=== PATIENT | female | born 1975 | race African-American/Black ===

== ENCOUNTER 2016-07-31 10:05 | Emergency (ER) | payer OTHER ==
[~2016-07-31] VITALS: Ht 160 cm; Wt 74.8 kg
--- NOTE | 2016-07-31 10:37 | ED GENERAL ADULT ---
History of Present Illness General Chief Complaint: General Adult Stated Complaint: HERE FOR 2ND RABIES SHOT Source: patient Exam Limitations: no limitations Vital Signs & Intake/Output Vital Signs & Intake/Output Vital Signs Date Time Temp Pulse Resp B/P B/P Pulse O2 O2 Flow FiO2 Mean Ox Delivery Rate 07/31 1051 98.2 77 18 147/94 97 Room Air Room Air Allergies Coded Allergies: No Known Allergies (07/31/16) Triage Nurses Notes Reviewed? yes Onset: Abrupt Duration: day(s): Timing: recent history Injury Environment: home No Modifying Factors: none HPI: 41-year-old female comes into emergency room for further evaluation of second rabies vaccine. Patient was seen at [facility] for the first 1. Patient had a positive exposure in the house. Denies any bites. Denies any pain. Denies any other associated symptoms. Past History Travel History Traveled to [place] past 21 day No Medical History Any Pertinent Medical History? see below for history Surgical History Surgical History: non-contributory Family History Hx Contributory? No Review of Systems Review of Systems Constitutional: Reports: no symptoms. EENTM: Reports: no symptoms. Respiratory: Reports: no symptoms. Cardiovascular: Reports: no symptoms. GI: Reports: no symptoms. Genitourinary: Reports: no symptoms. Musculoskeletal: Reports: no symptoms. Skin: Reports: no symptoms. Neurological/Psychological: Reports: no symptoms. Hematologic/Endocrine: Reports: no symptoms. Immunologic/Allergic: Reports: no symptoms. All Other Systems: Reviewed and Negative Physical Exam Physical Exam General Appearance: well developed/nourished, alert, awake Head: atraumatic Eyes: Bilateral: normal appearance. Ears, Nose, Throat: hearing grossly normal Neck: normal inspection Respiratory: no respiratory distress Back: normal range of motion Extremities: normal range of motion Neurologic/Psych: awake, alert Skin: intact, normal color Core Measures ACS in differential dx? No CVA/TIA Diagnosis: No Severe Sepsis Present: No Septic Shock Present: No Progress Differential Diagnoses I considered the following diagnoses in my evaluation of the patient: Rabies, cellulitis, abscess, tetanus Plan of Care: Current Medications Sig/[facility] Start time Last Medication Dose Stop Time Status Admin Rabies Vaccine 1 SYR ONCE ONE 07/31 1030 UNVr (Rabies (Vaccine) 07/31 1031 Inj (1ML)) Initial ED EKG: none Departure Departure Disposition: HOME OR SELF CARE Condition: Stable Clinical Impression Primary Impression: Rabies exposure Secondary Impressions: Exposure to bat without known bite Additional Instructions: Return as previously instructed. You were returning on days 3, 7 and 14. Return if any other concerns worsening symptoms. Departure Forms: Customer Survey General Discharge Information Critical Care Note Critical Care Note Critical Care Time: non-applicable
[2016-07-31 10:51] VITALS: BP 147/94
== END 2016-07-31 11:16 ==
LOC: ERH 10:05
DX: Z23 Encounter for immunization (principal)
CPT/HCPCS: 90471; 99281